=== PATIENT | female | born 1960 | race Two or more races ===

== ENCOUNTER 2021-07-27 | Emergency (ER) | payer OTHER ==
[~2021-07-27] VITALS: Ht 152.4 cm; Wt 68.2 kg
--- NOTE | 2021-07-27 01:56 | PHYS DOC ---
General Adult EDM: Chief Complaint: SORE THROAT HPI: HPI: ".. I took a flight from [facility] to visit my daughter and grandkids... And since have been here I got a very sore throat and a cough... Some nausea.." Patient is a 60 year old female from [facility] who presents with above hx and complaints of sore throat, fever, chills, malaise, arthralgia, pharyngitis, nausea, and nonproductive cough.. Patient is up-to-date with vaccinations including Covid x2 with booster. Patient has had flu vaccination this season. Patient has had Pneumovax. Patient normally healthy. Has developed symptoms after flight here to [place] to visit with family. Patient denies any history immunosuppression.. Review of Systems: Review of Systems: Constitutional: Complains of fever or chills Eyes: Denies change in visual acuity HENT: Complains of nasal congestion and sore throat Respiratory: Complains of nonproductive cough and wheezing Cardiovascular: Denies chest pain or edema GI: Complains of nausea,. Denies vomiting, bloody stools or diarrhea : Denies dysuria Musculoskeletal: Denies back pain or joint pain Integument: Denies rash Neurologic: Denies headache, focal weakness or sensory changes Endocrine: Denies polyuria or polydipsia Lymphatic: Denies swollen glands Psychiatric: Denies depression or anxiety Family History: Family History: Noncontributory to presentation Current Medications: Current Meds: See nursing for home meds Allergies: Allergies: No known drug allergies Physical Exam: PE: Constitutional: Moderate acute distress, non-toxic appearance. [] HENT: Normocephalic, atraumatic, bilateral external ears normal, oropharynx moist, injected pharynx, no tonsillar abscesses ,no oral exudates, nose swollen turbinates and clear rhinorrhea Eyes: PERRLA, EOMI, conjunctiva normal, no discharge. [] Neck: Normal range of motion, no tenderness, supple, no stridor. [] Cardiovascular tachycardia:Heart rate regular rhythm, no murmur [] Lungs & Thorax: Bilateral breath sounds equal apex with scattered wheezes auscultation [] Abdomen: Bowel sounds normal, soft, no tenderness, no masses, no pulsatile masses. [] Skin: Warm, dry, no erythema, no rash. [] Back: No tenderness, no CVA tenderness. [] Extremities: No tenderness, no cyanosis, no clubbing, ROM intact, no edema. No cording noted Neurologic: Alert and oriented X 3, normal motor function, normal sensory function, no focal deficits noted. [] Psychologic: Affect anxious , judgement normal, mood normal. [] EKG: EKG: [] Radiology/Procedures: Radiology/Procedures: [] Heart Score: C/O Chest Pain: N/A Risk Factors: Risk Factors: DM, Current or recent (<one month) smoker, HTN, HLP, family history of CAD, obesity. Risk Scores: Score 0 - 3: 2.5% MACE over next 6 weeks - Discharge Home Score 4 - 6: 20.3% MACE over next 6 weeks - Admit for Clinical Observation Score 7 - 10: 72.7% MACE over next 6 weeks - Early Invasive Strategies Course & Med Decision Making: Course & Med Decision Making Pertinent Labs and Imaging studies reviewed. (See chart for details) Patient wear a mask of her nose and mouth anytime she is interacting with others. Patient to push fluids. Patient take Tylenol or ibuprofen as needed for discomfort. Gargle with Listerine 4 times a day. Patient states she can be reached at [phone] while in [place] visiting with family. Impression: `1. Viral Syndrome 2. Viral pharyngitis [] Dragon Disclaimer: Dragon Disclaimer: This electronic medical record was generated, in whole or in part, using a voice recognition dictation system. Departure Departure: Referrals: PCP,NO (PCP) Scripts Ondansetron Hcl (ZOFRAN) 4 Mg Tablet 8 MG PO QIDPRN PRN for NAUSEA/VOMITING, #30 TAB Prov: DEEPAK OCAMPO MD 07/27/21 Manuel Disclaimer This chart was dictated in whole or in part using Voice Recognition software in a busy, high-work load, and often noisy Emergency Department environment. It may contain unintended and wholly unrecognized errors or omissions. Dragon Disclaimer This chart was dictated in whole or in part using Voice Recognition software in a busy, high-work load, and often noisy Emergency Department environment. It may contain unintended and wholly unrecognized errors or omissions. Dragon Disclaimer This chart was dictated in whole or in part using Voice Recognition software in a busy, high-work load, and often noisy Emergency Department environment. It may contain unintended and wholly unrecognized errors or omissions. DEEPAK OCAMPO MD Jul 27, 2021 01:56
[2021-07-27 02:02] VITALS: BP 146/74
[2021-07-27 03:07] LABS: INFLUENZA A PATIENT NEGATIVE (NEGATIVE); INFLUENZA B PATIENT NEGATIVE (NEGATIVE)
[2021-07-27] MEDS ORDERED: HYDROcodon/IBUPROFEN 7.5/200MG 1 TAB TABLET PO ONE (04:15)
[2021-07-27] MEDS ORDERED: ONDANSETRON ODT 4 MG TAB.RAPDIS PO ONE (04:15)
[2021-07-27] MEDS ORDERED: ALBUTEROL SULFATE 8GM INHALER. INH ONE (04:30)
[2021-07-27] MEDS ORDERED: ONDANSETRON ODT 4 MG TAB.RAPDIS ONE (04:42)
[2021-07-27] MEDS ORDERED: HYDROcodon/IBUPROFEN 7.5/200MG 1 TAB TABLET ONE (04:42)
[2021-07-27] MEDS ORDERED: ALBUTEROL SULFATE 8GM INHALER. ONE (04:46)
[2021-07-27] MEDS ORDERED: ONDA4TAB7 PO (04:47)
== END 2021-07-27 04:51 | disposition home or self-care (01) ==
LOC: ER
DX: U07.1 COVID-19 (principal); J02.8 Acute pharyngitis due to other specified organisms; B97.89 Other viral agents as the cause of diseases classified elsewhere
CPT/HCPCS: 87070; 87426; 87804; 87880; 94640; 99283; C9803; Q0162; U0003; 94664